=== PATIENT | female | born 1990 | race Two or more races ===

== ENCOUNTER 2023-12-22 15:10 | Emergency (ER) | payer BC, MEDICAID ==
[~2023-12-22] VITALS: Ht 160 cm; Wt 77.1 kg
[2023-12-22 16:45] LABS: BASOPHILS # (AUTO) 0.1 K/UL (0.0-0.2); DIFFERENTIAL COMMENT 0; EOSINOPHILS % (AUTO) 0.4 % (0.0-7.0); HEMATOCRIT 33.7 % (31.2-41.9); HEMOGLOBIN 10.8 g/dL (10.9-14.3); LYMPHOCYTES # (AUTO) 2.7 K/uL (0.8-4.8); LYMPHOCYTES % (AUTO) 30.8 % (20.5-51.5); MEAN CORPUSCULAR HEMOGLOBIN 25.1 uug (24.7-32.8); MEAN CORPUSCULAR HGB CONC 32 g/dL (32.3-35.6); MEAN CORPUSCULAR VOLUME 78.1 fL (75.5-95.3); MONOCYTES # (AUTO) 0.6 K/uL (0.1-1.30); MONOCYTES % (AUTO) 6.8 % (0.0-11.0); NEUTROPHILS # (AUTO) 5.4 K/uL (1.8-8.9); PLATELET COUNT (AUTO) 347 K/uL (179-408); RED BLOOD CELL COUNT(AUTO) 4.32 MIL/uL (3.63-4.92); RED CELL DISTRIBUTION WIDTH 17.9 % (12.3-17.7); WHITE BLOOD COUNT (AUTO) 8.9 K/uL (3.8-11.8)
[2023-12-22 16:54] LABS: CREATININE 0.6 mg/dL (0.6-1.3); POTASSIUM 4.1 mmol/L (3.5-5.1)
[2023-12-22 17:16] LABS: IRON, SERUM 17 ug/dL (50-175)
[2023-12-22] MEDS: KETOROLAC TROMETHAMINE 30 MG INJ IVP ONE (18:10)
[2023-12-22] MEDS ORDERED: FERR325T23 PO (18:14)
[2023-12-22 18:15] LABS: *BILIRUBIN,URIN NEGATIVE (NEGATIVE); *BLOOD, URINE NEGATIVE (NEGATIVE); *COLOR,URINE YELLOW (YELLOW); *KETONES,URINE NEGATIVE (NEGATIVE); *PROTEIN,URINE NEGATIVE (NEGATIVE); *UROBILINOGEN,URINE 0.2 E.U./dl (NORMAL); LEUKOCYTE ESTERASE ,URINE NEGATIVE (NEGATIVE); NITRITE, URINE NEGATIVE (NEGATIVE); PH,URINE 6.5 (5.0-8.0); UGLUCOSE NEGATIVE (NEGATIVE)
[2023-12-22] MEDS ORDERED: diphenhydrAMINE 50 MG/1 ML VIAL ONE (18:17)
[2023-12-22] MEDS ORDERED: KETOROLAC TROMETHAMINE 30 MG INJ ONE (18:17)
[2023-12-22] MEDS ORDERED: METOCLOPRAMIDE HCL 10 MG/2 ML VIAL ONE (18:17)
[2023-12-22] MEDS: METOCLOPRAMIDE HCL 10 MG/2 ML VIAL IV ONE (18:24)
[2023-12-22] MEDS: diphenhydrAMINE 50 MG/1 ML VIAL IV ONE (18:25)
[2023-12-22 18:32] LABS: *CLARITY,URINE EH109848I (CLEAR); *URINE HCG, QUAL NEGATIVE (NEGATIVE)
[2023-12-22 19:23] VITALS: BP 133/80; TEMP 97; O2SAT 99
== END 2023-12-22 19:23 | disposition home or self-care (01) ==
LOC: ER 15:11
DX: R42 Dizziness and giddiness (principal); R51.9 Headache, unspecified; R10.2 Pelvic and perineal pain; D50.9 Iron deficiency anemia, unspecified; Z79.899 Other long term (current) drug therapy
CPT/HCPCS: 99285; 96374; 70450; 96375; 80048; 81003; 84703; 83550; 85025; 36415; J1200; J1885; J2765; A4606; A4663

== ENCOUNTER 2024-09-25 08:59 | Emergency (ER) | payer BC, OTHER ==
[~2024-09-25] VITALS: Ht 160 cm; Wt 104.3 kg
[~2024-09-25 08:59] MED LIST: FERR325T23 PO
[2024-09-25] MEDS ORDERED: AMOX-430 PO (10:03)
[2024-09-25] MEDS ORDERED: PSEU-249 PO (10:03)
[2024-09-25] MEDS ORDERED: OXYM15MI4 NS (10:03)
[2024-09-25] MEDS ORDERED: FLUT16SP16 BNOSTRILS (10:03)
[2024-09-25] MEDS ORDERED: ACET1TAB23 PO (10:03)
[2024-09-25 10:11] VITALS: BP 118/84; TEMP 97.8; O2SAT 100
== END 2024-09-25 10:20 | disposition home or self-care (01) ==
LOC: ER 08:59
DX: J32.9 Chronic sinusitis, unspecified (principal); J40 Bronchitis, not specified as acute or chronic
CPT/HCPCS: A4606; A4663

== ENCOUNTER 2024-10-18 12:21 | Emergency (ER) | payer OTHER ==
[~2024-10-18] VITALS: Ht 160 cm; Wt 108.9 kg
[~2024-10-18 12:21] MED LIST changes: +ACET1TAB23 PO; +AMOX-430 PO; +FLUT16SP16 BNOSTRILS; +OXYM15MI4 NS; +PSEU-249 PO
[2024-10-18] MEDS ORDERED: AMOX-430 PO (13:38)
[2024-10-18] MEDS ORDERED: PRED50TA PO (13:38)
[2024-10-18] MEDS ORDERED: ACET-3102 PO (13:38)
[2024-10-18 13:53] VITALS: BP 102/65; TEMP 98.6; O2SAT 100
== END 2024-10-18 14:01 | disposition home or self-care (01) ==
LOC: ER 12:21
DX: J32.9 Chronic sinusitis, unspecified (principal); Z79.52 Long term (current) use of systemic steroids
CPT/HCPCS: A4606; A4663